=== PATIENT | female | born 1985 | race Caucasian/White ===

== ENCOUNTER 2018-06-01 12:49 | Inpatient (IN) | END 2018-06-03 15:48 | disposition home or self-care (01) | DRG 775 ==

== ENCOUNTER 2019-05-01 14:01 | Emergency (ER) | payer MEDICAID ==
[~2019-05-01] VITALS: Ht 165.1 cm; Wt 66.5 kg
[~2019-05-01 14:01] MED LIST: PREN1TAB79 PO
[2019-05-01 14:04] VITALS: BP 111/75; PULSE 88; RESP 24; Ht 165.1 cm; Wt 66.5 kg
--- NOTE | 2019-05-01 14:21 | ERD ---
ER Documentation Chief Complaint Chief Complaint left eye redness/swelling HPI 33-year-old female, previously healthy, presents to the emergency department, complaining of 1 day with left ocular erythema and edema, associated with yellowish discharge and intense itching. The patient denies headache, no fever, no blurred vision, no neck pain. ROS All systems reviewed and are negative except as per history of present illness. Medications Home Meds Active Scripts Erythromycin Base (Erythromycin) 1 Gm Oint...g., 1 APPLIC LEFT EYE QID for 7 Days Prov:PACHECO BLANC MD 05/01/19 Reported Medications Vit W-Ca,Fe,FA(<1 mg) ( Vitamins) 1 Each Tablet, 1 EACH PO 06/01/18 Allergies Allergies: Coded Allergies: No Known Allergy (Unverified , 10/10/13) PMhx/Soc Medical and Surgical Hx: pt denies Medical Hx History of Surgery: No Anesthesia Reaction: No Hx Neurological Disorder: No Hx Respiratory Disorders: No Hx Cardiac Disorders: No Hx Psychiatric Problems: No Hx Miscellaneous Medical Probl: No Hx Alcohol Use: No Hx Substance Use: No Hx Tobacco Use: No FmHx Family History: No diabetes, No coronary disease Physical Exam Vitals Vital Signs Date Temp Pulse Resp B/P (MAP) Pulse Ox O2 O2 Flow FiO2 Time Delivery Rate 05/01/19 98.3 88 24 111/75 96 14:04 (87) Physical Exam Const: No acute distress Head: Atraumatic Eyes: Left eye: Injected conjunctiva with yellowish discharge, anterior chamber clear. Contralateral eye normal. ENT: Normal External Ears, Nose and Mouth. Neck: Full range of motion. No meningismus. Resp: Clear to auscultation bilaterally Cardio: Regular rate and rhythm, no murmurs Abd: Soft, non tender, non distended. Normal bowel sounds Skin: No petechiae or rashes Back: No midline or flank tenderness Ext: No cyanosis, or edema Neur: Awake and alert Psych: Normal Mood and Affect Procedures/MDM Differential diagnosis include but not limited to: infection bacterial/viral/fungal, iritis, scleritis, corneal abrasion, allergies, foreign body, glaucoma. Physical examination and clinical presentation consistent most likely with acute infectious conjunctivitis. During the ED course the patient remained stable, no new complaints. Clinical impression discussed with patient who agrees with management. The patient is stable to be treated outpatient and will be discharged home; Some side effects of prescribed medications (headache, rash, nausea, vomiting, diarrhea, interactions with other medications) were reviewed. The patient was instructed to follow up with the primary care provider in the next 48h. If symptoms persist, worsen or new symptoms develop, then patient should return to the ED immediately. Disclaimer: Inadvertent spelling and grammatical errors are likely due to EHR/dictation software use and do not reflect on the overall quality of patient care. Also, please note that the electronic time recorded on this note does not necessarily reflect the actual time of the patient encounter. Departure Diagnosis: Primary Impression: Conjunctivitis, left eye Condition: Stable Additional Instructions: Thank you very much for allowing us to participate in your care. Your health and safety is our top priority at [facility]. The evaluation in the emergency department has been done to rule out an acute emergency. Chronic, [id number] conditions may have not been evaluated; therefore, you need to follow up with a primary care provider in the next 48h. If symptoms persist, worsen or new symptoms develop, then patient should return to the ED immediately. Call your primary care doctor TOMORROW for an appointment during the next 2-4 days and bring all the information provided. Have prescriptions filled and follow precisely the directions on the label. If the symptoms get worse and your provider is unavailable, return to the Emergency Department immediately. PACHECO BLANC MD May 01, 2019 14:21
[2019-05-01] MEDS ORDERED: ERYT1OIN6 LEFT EYE (14:26)
== END 2019-05-01 14:27 | disposition home or self-care (01) ==
LOC: E/R 14:01
DX: H10.9 Unspecified conjunctivitis (principal)
CPT/HCPCS: 99283